=== PATIENT | female | born 1970 | race Caucasian/White ===

== ENCOUNTER → 2017-03-09 | Outpatient (CLI) | payer BC ==
--- NOTE | 2017-03-09 14:18 | MY ---
EXAMINATION: Bilateral digital mammography utilizing CAD. HISTORY: Screening exam. Comparison is made to previous studies dated 09/12/2012. FINDINGS: Bilateral heterogeneously dense breast tissue. There is a two-view asymmetry within the right breast at the approximate 12 o'clock position. Otherwise, no suspicious calcifications, masses or architectural distortions. No pathologic appearing lymph nodes, no abnormal skin thickening or nipple inversion. Other CAD highlighted regions appear normal at this time. IMPRESSION: BI-RADS category 0 - Incomplete study. Right breast diagnostic is needed for further e valuation. THE FALSE-NEGATIVE RATE OF MAMMOGRAM IS APPROXIMATELY 10%. MANAGEMENT OF A PALPABLE ABNORMALITY MUST BE BASED UPON CLINICAL GROUNDS. SENSITIVITY FOR DETECTION OF ABNORMALITIES IN DENSE BREASTS IS LOW. NOTE: A letter will be sent to the patient regarding findings. [facility] -- [place] [phone] - FAX [phone]
== END | disposition home or self-care (01) ==
LOC: MW.MAM 08:28
PROVIDERS: ATTEND Physician Assistant
DX: Z12.31 Encounter for screening mammogram for malignant neoplasm of breast (principal)
CPT/HCPCS: G0202; G0202-26

== ENCOUNTER → 2017-03-21 | Outpatient (CLI) | payer BC ==
--- NOTE | 2017-03-22 10:37 | MY ---
EXAMINATION: Right digital diagnostic mammogram. HISTORY: Abnormal screening. Comparison is made to previous studies dated 03/09/2017, 09/17/2012. FINDINGS: There is a 2 view asymmetry within the deep posterior right breast at the approximate 12 o'clock pos ition. This measures approximately 11 mm mammographically. Targeted ultrasound of the right breast d emonstrates several tiny cystic spaces just superior to the areola. There is a simple appearing cyst measuring 8 mm at the 10 o'clock position. At the 12 o'clock position just above the areola there i s an 8 mm round hypoechoic structure, consistent with a cyst. This appears fairly well circumscribed however is deep and the margins are not adequately identified. Posterior acoustic enhancement and i nternal color Doppler flow is noted. IMPRESSION: BI-RADS category III - probably benign. Probable cyst at the 12 o'clock position of the right breast . Followup in 6 months with a right breast diagnostic study is recommended. Alternatively this is autumn nable to ultrasound-guided aspiration. THE FALSE-NEGATIVE RATE OF MAMMOGRAM IS APPROXIMATELY 10%. MANAGEMENT OF A PALPABLE ABNORMALITY MUST BE BASED UPON CLINICAL GROUNDS. SENSITIVITY FOR DETECTION OF ABNORMALITIES IN DENSE BREASTS IS LOW. NOTE: A letter will be sent to the patient regarding findings. [facility] [place] -- [place] [phone] - FAX [phone]
== END ==
LOC: MW.MAM 11:00
PROVIDERS: ATTEND Physician Assistant
DX: R92.8 Other abnormal and inconclusive findings on diagnostic imaging of breast (principal)
CPT/HCPCS: 76641; G0206

== ENCOUNTER 2022-06-18 23:17 | Emergency (ER) | payer BC ==
[2022-06-19] MEDS ORDERED: Cephalexin 500 MG Cap PO STA (00:37)
== END 2022-06-19 00:50 | disposition home or self-care (01) ==
LOC: MW.ED 23:17
DX: N39.0 Urinary tract infection, site not specified (principal); E03.9 Hypothyroidism, unspecified; Z79.899 Other long term (current) drug therapy
CPT/HCPCS: 81001; 99283; A9270